=== PATIENT | male | born 1960 | race Caucasian/White ===

== ENCOUNTER 2022-07-19 06:42 | Observation (INO) | payer BC ==
[2022-07-15 12:32] VITALS: BMI 29.8
[2022-07-19] MEDS ORDERED: Midazolam HCl 2 mg/2 ml Vial ONE (07:40)
[2022-07-19] MEDS ORDERED: HYDROmorphone 0.5 MG/0.5 ML SYRINGE ONE (07:47)
[2022-07-19] MEDS ORDERED: fentaNYL PF 100 MCG/2 ML SYRINGE ONE (07:47)
[2022-07-19] MEDS ORDERED: SUGAMMADEX SODIUM 200 MG/2 ML VIAL ONE (07:47)
[2022-07-19] MEDS ORDERED: Pantoprazole 40 MG VIAL IVP SCH (08:00)
[2022-07-19] MEDS ORDERED: Sodium Chloride 0.9% 100 ML ONE (08:08)
[2022-07-19] MEDS ORDERED: CEFAZOLIN 2 GM VIAL ONE (08:08)
[2022-07-19] MEDS ORDERED: PROPOFOL 200 MG/20 ML VIAL ONE (08:17)
[2022-07-19] MEDS ORDERED: PHENYLEPHRINE-NS 100 MCG/ML 10 ML SYRINGE ONE (08:17)
[2022-07-19] MEDS ORDERED: Lidocaine 1% PF 5 ML VIAL ONE (08:17)
[2022-07-19] MEDS ORDERED: NEOSTIGMINE 3 MG/3 ML SYR 3 MG/3 ML SYRINGE ONE (08:17)
[2022-07-19] MEDS ORDERED: Rocuronium Bromide 10 MG/ML (10ML VIAL) ONE (08:17)
[2022-07-19] MEDS ORDERED: Ondansetron PF 4 MG/2 ML Vial ONE (08:17)
[2022-07-19] MEDS ORDERED: Glycopyrrolate 0.2 MG/ML 5 ML SYRINGE ONE (08:17)
[2022-07-19] MEDS ORDERED: Dexamethasone 20 MG/5 ML VIAL ONE (08:17)
[2022-07-19] MEDS ORDERED: Mag-Al 1200 mg/1200 mg/30 ML UDCUP PO PRN (09:14)
[2022-07-19] MEDS ORDERED: Promethazine 25 MG TAB PO PRN (09:14)
[2022-07-19] MEDS ORDERED: Ondansetron PF 4 MG/2 ML Vial IVP PRN (09:14)
[2022-07-19] MEDS ORDERED: Morphine 2 MG/ML VIAL SLOW IVP PRN (09:14)
[2022-07-19] MEDS ORDERED: Acetaminophen 325 MG TAB PO PRN (09:14)
[2022-07-19] MEDS ORDERED: Acetaminophen/Codeine 30-300mg Tablet PO PRN (09:14)
[2022-07-19] MEDS ORDERED: diphenhydrAMINE 25 MG CAP PO PRN (09:14)
[2022-07-19] MEDS ORDERED: traMADol HCl 50 MG TAB PO PRN (09:14)
[2022-07-19] MEDS ORDERED: Milk Of Magnesia 30 ML UDCUP PO PRN (09:14)
[2022-07-19] MEDS ORDERED: Cyclobenzaprine 10 MG TAB PO PRN (09:14)
[2022-07-19] MEDS ORDERED: Fentanyl 100 MCG/2 ML VIAL ONE ×2 (09:49→11:32)
[2022-07-19] MEDS ORDERED: Non-Formulary Medication 1 EACH PO PRN (10:12)
[2022-07-19] MEDS ORDERED: Promethazine HCl 25 MG/ML VIAL IM/IV PRN (10:15)
[2022-07-19] MEDS ORDERED: Ondansetron HCl/PF 4 MG/2 ML Vial IVP PRN (10:15)
[2022-07-19] MEDS: Acetaminophen/Codeine 30-300mg Tablet PO PRN ×2 (14:40→21:41)
[2022-07-19] MEDS: Sodium Chloride 0.9% 1,000 ML IV SCH (14:41)
[2022-07-19] MEDS: CEFAZOLIN 2 GM in Sodium Chloride 0.9% 100 ML IVPB SCH ×2 (14:41→21:41)
[2022-07-19] MEDS: Tacrolimus 1 MG CAP PO SCH (21:23)
[2022-07-20] MEDS: Sodium Chloride 0.9% 1,000 ML IV SCH (05:10)
[2022-07-20] MEDS: CEFAZOLIN 2 GM in Sodium Chloride 0.9% 100 ML IVPB SCH (05:10)
[2022-07-20] MEDS ORDERED: Tamsulosin HCl 0.4 MG CAP PO SCH (06:00)
[2022-07-20 08:06] VITALS: BP 156/81; TEMP 97.9
[2022-07-20] MEDS ORDERED: FLUoxetine HCl 20 MG CAP PO SCH (09:00)
[2022-07-20] MEDS: Acetaminophen/Codeine 30-300mg Tablet PO PRN (09:33)
[2022-07-20] MEDS: Tacrolimus 1 MG CAP PO SCH (11:16)
== END 2022-07-20 11:05 | disposition home or self-care (01) ==
LOC: SDC 06:42 → SURG A 13:54
PROVIDERS: ADMIT Neurological Surgery; ATTEND Neurological Surgery
PROC: 0RG20A0 Fusion of 2 or more Cervical Vertebral Joints with Interbody Fusion Device, Anterior Approach, Anterior Column, Open Approach (ICD-10-PCS; principal; 2022-07-19)
DX: M50.122 Cervical disc disorder at C5-C6 level with radiculopathy (principal); I12.9 Hypertensive chronic kidney disease with stage 1 through stage 4 chronic kidney disease, or unspecified chronic kidney disease; E11.22 Type 2 diabetes mellitus with diabetic chronic kidney disease; N18.9 Chronic kidney disease, unspecified; E78.5 Hyperlipidemia, unspecified; K21.9 Gastro-esophageal reflux disease without esophagitis; G47.30 Sleep apnea, unspecified; Z79.621 Long term (current) use of calcineurin inhibitor; Z79.85 Long-term (current) use of injectable non-insulin antidiabetic drugs; Z79.899 Other long term (current) drug therapy; Z88.8 Allergy status to other drugs, medicaments and biological substances; Z94.0 Kidney transplant status
CPT/HCPCS: 93005; 93010; 96365; 96375; 96376; C1713; C9113; G0378; J1100; J1170; J2250; J2272; J2405; J2704; J3010; J3490; J7050

== ENCOUNTER 2022-08-13 10:50 | Outpatient (CLI) | payer BC | END 2022-08-13 10:51 | disposition home or self-care (01) | LOC: TBSIIMAG 10:50 | PROVIDERS: ATTEND Neurological Surgery | DX: M47.22 Other spondylosis with radiculopathy, cervical region (principal); Z98.1 Arthrodesis status | CPT/HCPCS: 72040 ==

== ENCOUNTER 2022-10-20 13:33 | Outpatient (CLI) | payer BC | END 2022-10-20 13:34 | disposition home or self-care (01) | LOC: TBSIIMAG 13:33 | PROVIDERS: ATTEND Neurological Surgery | DX: M50.10 Cervical disc disorder with radiculopathy, unspecified cervical region (principal); M47.22 Other spondylosis with radiculopathy, cervical region; Z98.1 Arthrodesis status | CPT/HCPCS: 72040 ==